=== PATIENT | female | born 1970 ===

== ENCOUNTER 2022-03-13 10:39 | Observation (INO) ==
[~2022-03-13 10:39] MED LIST: Clindamycin 900 MG/50 **NS BAG 900 MG/50 ML BAG IV ONE
[2022-03-13] MEDS ORDERED: oxyCODONE SR 10 mg TAB ONE (11:04)
[2022-03-13] MEDS ORDERED: Scopolamine 1 mg/72hr PATCH ONE (11:05)
[2022-03-13] MEDS ORDERED: Ondansetron 4 mg VIAL 2 MG/ML 2 ml VIAL ONE (11:05)
[2022-03-13] MEDS ORDERED: Naloxone 0.4 mg VIAL 0.4 mg/ml 1 ml VIAL IV PUSH PRN (11:39)
[2022-03-13] MEDS ORDERED: HYDROmorphone PCA 20 MG/20 ML PCA.SYRING PCA SCH (12:00)
[2022-03-13] MEDS ORDERED: Heparin 2 UNITS/ML IVPREMIX 3,000 UNIT/1,500 ML BAG IV ONE (12:01)
[2022-03-13] MEDS ORDERED: Lidocaine 1% VIAL 10 MG/ML VIAL 30 ML ONE (12:01)
[2022-03-13] MEDS ORDERED: Iohexol 350 (CONTRAST) 100 ML PAK IV ONE ×2 (12:01→12:47)
[2022-03-13 12:02] LABS: Hematocrit 36 % (35-47); Hemoglobin 12.6 g/dL (12.0-16.0); Mean Corpuscular HGB Conc 35 g/dL (31-36); Mean Corpuscular Hemoglobin 32 pg (27-31); Mean Corpuscular Volume 93 fL (80-97); Mean Platelet Volume 9.4 fL (7.4-10.4); Platelet Count 212 10^3/uL (150-450); Red Blood Count 3.92 10^6 /uL (3.70-4.87); Red Cell Distribution Width 13 % (10-15)
[2022-03-13] MEDS ORDERED: Midazolam 5 mg/5 ml VIAL 1 mg/ml 5 ml VIAL (5 mg) ONE (12:04)
[2022-03-13] MEDS ORDERED: fentaNYL 100 mcg/2 ml 50 MCG/ML VIAL ONE (12:05)
[2022-03-13] MEDS ORDERED: nitroGLYCERIN DRIP 25,000 MCG/250 ML BTL ONE (12:06)
[2022-03-13 12:17] LABS: Activated Partial Thrombo Time 28.5 seconds (26.0-38.0); INR 1.03 (0.88-1.18)
[2022-03-13 12:20] LABS: Blood Urea Nitrogen 13 mg/dL (6-24); CO2 Carbon Dioxide 27 mmol/L (22-32); Calcium 9.1 mg/dL (8.6-10.3); Chloride 103 mmol/L (101-111); Glucose 83 mg/dL (70-100); Sodium 138 mmol/L (135-145); eGFR CKD-EPI 79.4 (>60)
[2022-03-13 12:22] LABS: Anion Gap 8 mmol/L (2-11)
[2022-03-13 12:26] LABS: HCG Pregnancy < 0.60 mIU/mL
[2022-03-13] MEDS ORDERED: HYDROmorphone 0.5 MG/0.5 ML SYRINGE ONE ×3 (13:20→13:34)
[2022-03-13] MEDS ORDERED: NS 0.9% 1,000 ML IV SCH (14:45)
[2022-03-13] MEDS: Ondansetron 4 mg VIAL 2 MG/ML 2 ml VIAL IV SCH (18:45)
[2022-03-14] MEDS: Ondansetron 4 mg VIAL 2 MG/ML 2 ml VIAL IV SCH ×2 (01:10→06:28)
[2022-03-14 06:15] LABS: ABS Eosinophils 0.2 10^3/ul (0-0.6); ABS Lymphocytes 1.4 10^3/ul (1.0-4.8); ABS Monocytes 0.6 10^3/ul (0-0.8); ABS Neutrophils 4.2 10^3/ul (1.5-7.7); Eosinophil % 2.7 %; Hematocrit 31 % (35-47); Hemoglobin 10.8 g/dL (12.0-16.0); Lymphocyte % 22.2 %; Mean Corpuscular HGB Conc 35 g/dL (31-36); Mean Corpuscular Hemoglobin 32 pg (27-31); Mean Corpuscular Volume 93 fL (80-97); Mean Platelet Volume 8.7 fL (7.4-10.4); Nucleated Red Blood Cells % 0.1; Platelet Count 178 10^3/uL (150-450); Red Blood Count 3.35 10^6 /uL (3.70-4.87); Red Cell Distribution Width 13 % (10-15); White Blood Count 6.4 10^3/uL (3.5-10.8)
[2022-03-14 06:49] LABS: Calcium 7.9 mg/dL (8.6-10.3); Magnesium 1.8 mg/dL (1.9-2.7); Potassium 4.1 mmol/L (3.5-5.0); eGFR CKD-EPI 94.5 (>60)
[2022-03-14] MEDS ORDERED: HYDROcodone/ACETAMIN 5/325 mg TAB PO PRN (08:16)
[2022-03-14] MEDS ORDERED: [UNRECOGNIZED DRUG - OTHER] PO SCH ×2 (09:00→10:12)
[2022-03-14] MEDS ORDERED: Cholecalciferol (VIT D3) 1,000 unit TAB PO SCH (09:00)
[2022-03-14] MEDS: Ketorolac 10 mg TAB (NF) PO SCH ×2 (10:06→15:15)
[2022-03-14] MEDS ORDERED: Magnesium Sulfate 2 gm BAG 2 GM/50 ML BAG IVPB ONE (10:08)
[2022-03-14 11:39] VITALS: BP 101/63
== END 2022-03-14 15:50 | disposition home or self-care (01) ==
LOC: SSU 10:39 → CHICATH 10:39 → SUATTDRO 16:40 → SSU 16:43
PROVIDERS: ADMIT Internal Medicine; ATTEND Internal Medicine
PROC: ANG.UFE (2022-03-13 12:10)